=== PATIENT | female | born 1960 ===

== ENCOUNTER 2018-04-22 17:11 | Emergency (ER) | payer BC ==
[2018-04-22 17:25] VITALS: BP 129/72
--- NOTE | 2018-04-22 17:34 | UC ---
Throat Pain/Nasal Nathen HPI - HPI Summary HPI Summary: PATIENT PRESENTS WITH 3 DAYS OF POSTNASAL DRAINAGE, CONGESTION AND SORE THROAT THAT ARE WORSENING. TEMP HAS BEEN ELEVATED AROUND 99. SHE DENIES COUGH OR VOMITING BUT DOES HAVE SOME SLIGHT NAUSEA. - History of Current Complaint Chief Complaint: UCRespiratory Stated Complaint: THROAT COMPLAINT Time Seen by Provider: 04/22/18 17:25 Hx Obtained From: Patient Onset/Duration: Gradual Onset, Lasting Days, Still Present Severity: Moderate Pain Intensity: 7 Pain Scale Used: 0-10 Numeric Cough: Nonproductive Associated Signs & Symptoms: Positive: Negative - Allergies/Home Medications Allergies/Adverse Reactions: Allergies Allergy/AdvReac Type Severity Reaction Status Date / Time No Known Allergies Allergy Verified 04/22/18 17:19 Home Medications: Home Medications Ibuprofen [Advil] 400 mg PO Q8HR PRN 04/22/18 [History Confirmed 04/22/18] Pseudoephedrine HCl [Sudafed] 30 mg PO Q8HR PRN 04/22/18 [History Confirmed ] PMH/Surg Hx/FS Hx/Imm Hx Previously Healthy: Yes - Surgical History Surgical History: Yes Surgery Procedure, Year, and Place: RIGHT ROTATOR CUFF. RECONSTRUCTION LEFT FOOT (PINS PLACED BUT LATER REMOVED) - Family History Known Family History: Negative: Hypertension - Social History Alcohol Use: Daily Substance Use Type: None Smoking Status (MU): Never Smoked Tobacco Review of Systems Constitutional: Negative ENT: Sore Throat Respiratory: Negative Cardiovascular: Negative Gastrointestinal: Nausea All Other Systems Reviewed And Are Negative: Yes Physical Exam Triage Information Reviewed: Yes Appearance: Well-Appearing, No Pain Distress, Well-Nourished Vital Signs: Initial Vital Signs Temp 99.0 F 04/22/18 17:19 Pulse 74 04/22/18 17:19 Resp 18 04/22/18 17:19 BP 129/72 04/22/18 17:19 Pulse Ox 100 04/22/18 17:19 Vital Signs Reviewed: Yes Eyes: Positive: Conjunctiva Clear ENT: Positive: Hearing grossly normal, Pharyngeal erythema, TMs normal. Negative: Tonsillar swelling, Tonsillar exudate Neck: Positive: Supple, Nontender, No Lymphadenopathy Respiratory Exam: Normal Cardiovascular Exam: Normal Abdomen Description: Positive: Soft Musculoskeletal: Positive: No Edema Neurological: Positive: Alert Psychological: Positive: Age Appropriate Behavior Skin: Negative: rashes Diagnostics - Laboratory Diagnostic Studies Completed/Ordered: STREP NEG Throat Pain/Nasal Course/Dx - Differential Dx/Diagnosis Provider Diagnoses: ACUTE PHARYNGITIS Discharge - Sign-Out/Discharge Documenting (check all that apply): Discharge/Admit/Transfer - Discharge Plan Condition: Stable Disposition: HOME Prescriptions: Magic Mouth Was-SARA/MAAL/LIDO* 5 - 10 ml SWISH SWAL QID PRN #150 ml PRN Reason: Sore Throat Patient Education Materials: Pharyngitis (ED) Referrals: Anais Plasencia MD [Primary Care Provider] - If Needed Additional Instructions: STREP TEST TODAY NEGATIVE. YOUR SYMPTOMS ARE LIKELY VIRALLY MEDIATED AND SHOULD RESOLVE ON THEIR OWN WITH TIME. NO INDICATION FOR ANTIBIOTICS AT PRESENT. REST, HYDRATE, OTC MEDS NEEDED. SEEK FOLLOW-UP IF YOU ARE NOT IMPROVING OVER THE NEXT 1-2 WEEKS. MAGIC MOUTHWASH NEEDED TO HELP WITH DISCOMFORT. - Billing Disposition and Condition Condition: STABLE Disposition: HOME
[2018-04-22] MEDS ORDERED: Acetaminophen TAB* 325 MG PO ONE (17:35)
== END 2018-04-22 18:28 | disposition home or self-care (01) ==
LOC: UCEAST 17:11
DX: J02.9 Acute pharyngitis, unspecified (principal); R11.0 Nausea; R09.89 Other specified symptoms and signs involving the circulatory and respiratory systems
CPT/HCPCS: 87651; 99201; A9270-GY; G0463